=== PATIENT | male | born 1965 | race Two or more races ===

== ENCOUNTER 2017-08-13 04:08 | Emergency (ER) | payer MEDICAID ==
[~2017-08-13] VITALS: Ht 165.1 cm; Wt 106.6 kg
[2017-08-13] MEDS ORDERED: KETOROLAC TROMETH 60MG/2ML VIAL IM ONE (05:15)
[2017-08-13 05:18] VITALS: BP 142/86
== END 2017-08-13 05:35 | disposition home or self-care (01) ==
LOC: ER 04:10
DX: S80.01XA Contusion of right knee, initial encounter (principal); W01.0XXA Fall on same level from slipping, tripping and stumbling without subsequent striking against object, initial encounter; Y93.89 Activity, other specified; Y99.8 Other external cause status; Y92.89 Other specified places as the place of occurrence of the external cause
CPT/HCPCS: 73560; 96372; 99284; J1885